=== PATIENT | female | born 1950 | race African-American/Black ===

== ENCOUNTER → 2016-04-17 | Outpatient (CLI) | payer MEDICARE ==
[2015-11-20 11:00] VITALS: BP 159/87
[~2016-04-17] MED LIST: AMLO5TAB2 PO; APIX5TAB PO; ASPI81TA9 PO; ATEN25TA PO; DIPH25CA58 PO; FLEC50TA PO; FLUT9.9S NS; FOLI0.4T2 PO; FOLI1TAB16 PO; LISI40TA PO; MELA1TAB13 PO; OXYC5CAP3 PO; PRAV40TA2 PO; TEMA15CA6 PO; TEMA30CA PO; TRAZ50TA15 PO; ZOLP10TA4 PO
--- NOTE | 2016-04-17 09:03 | KCIC ---
PROCEDURE Maxillofacial bone CT without contrast. HISTORY Chronic sinusitis. TECHNIQUE Computed tomographic images of the maxillofacial bones were obtained without contrast according to a landmark protocol. One or more of the following individualized dose reduction techniques were utilized for this examination: 1. Automated exposure control; 2. Adjustment of the mA and/or kV according to patient size; 3. Use of iterative reconstruction technique. COMPARISON None. FINDINGS There is mild bilateral superior medial maxillary sinus mucosal thickening. The ostiomeatal units are patent. There is no significant nasal septal deviation. There is no sinus wall thickening or erosion. The orbits are unremarkable. The mastoid air cells are clear. The temporomandibular joints are intact. The visualized portions of the brain and calvarium are unremarkable. IMPRESSION Mild maxillary sinus mucosal thickening. Electronically signed by: Dorinda Hanna (Apr 17, 2016 09:01:31)
== END | disposition home or self-care (01) ==
LOC: KCIC CT 07:47
PROVIDERS: ATTEND Otolaryngology
DX: J32.9 Chronic sinusitis, unspecified (principal)
CPT/HCPCS: 70486

== ENCOUNTER → 2016-08-20 | Outpatient (CLI) | payer MEDICARE ==
[2015-11-20 11:00] VITALS: BP 159/87
[~2016-08-20] MED LIST changes: +ASPI-612 PO; -ASPI81TA9 PO; +OXYC5CAP PO; -OXYC5CAP3 PO
--- NOTE | 2016-08-21 15:42 | RAD ---
DATE: 08/20/2016 EXAM: DIGITAL SCREEN BILAT W/CAD HISTORY: Asymptomatic screening mammogram. History of left cyst removal. History of sister with breast cancer at age 62. COMPARISON: 04/15/2015, 06/22/2010 This study was interpreted with the benefit of Computerized Aided Detection (CAD). The breast parenchyma shows scattered fibroglandular densities. Breast parenchyma level B. FINDINGS: Bilateral CC and MLO views were performed. Left breast: There is a new circumscribed 11 mm mass in the lateral superior left breast at posterior depth. This should be further evaluated with spot compression CC and MLO views and possible ultrasound. No suspicious macrocalcifications or areas of architectural distortion. Right breast: No new masses, suspicious calcifications or areas of architectural distortion. Findings are stable from the prior examination. IMPRESSION: 1. Incomplete left mammogram. Additional views are recommended including a spot compression CC and MLO views with possible ultrasound. 2. Negative right mammogram. BI-RADS CATEGORY: 0 INCOMPLETE: NEEDS ADDITIONAL IMAGING EVALUATION AND/OR PRIOR MAMMOGRAMS FOR COMPARISON. RECOMMENDED FOLLOW-UP: ADD ADDITIONAL IMAGING PQRS compliance statement: Mammography is a sensitive method for finding small breast cancers, but it does not detect them all and is not a substitute for careful clinical examination. A negative mammogram does not negate a clinically suspicious finding and should not result in delay in biopsying a clinically suspicious abnormality. "Our facility is accredited by the [employer] Mammography Program."
== END | disposition home or self-care (01) ==
LOC: MAMMO 10:37
PROVIDERS: ATTEND Internal Medicine
DX: Z12.31 Encounter for screening mammogram for malignant neoplasm of breast (principal)
CPT/HCPCS: G0202; 77067

== ENCOUNTER → 2016-08-28 | Outpatient (CLI) | payer MEDICARE ==
[2015-11-20 11:00] VITALS: BP 159/87
--- NOTE | 2016-08-28 10:44 | RAD ---
EXAM: DIGITAL DIAGNOSTIC LT, BREAST LEFT HISTORY: Mass within left breast on screening examination. COMPARISON: Priors including 04/15/2015 and 06/14/2010 Additional images were obtained of the left breast including spot compression and magnification. This study was interpreted with the benefit of Computerized Aided Detection (CAD). FINDINGS: The breast parenchyma Is heterogenously dense, which could reduce sensitivity of mammography. Breast parenchyma level III.. On spot compression images the apparent new well-circumscribed mass within the left upper outer breast persists. In addition there is a cluster of coarse calcifications seen within the left medial inferior breast as well as some calcifications in the left upper breast laterally. Secondary to the presence of this persistent mass the patient was sent ultrasound to further evaluate. Focused ultrasound images were obtained left upper outer breast in the region of concern on mammogram. At the 1:00 position of the left breast 3 cm from the nipple there is a 9 x 9 mm anechoic lesion identified with increased through transmission. IMPRESSION: Persistent well-circumscribed mass is seen within the left upper outer breast on mammogram but on ultrasound this likely corresponds to a benign-appearing cyst. Within the left inferior medial breast as well as within the left outer breast there is some calcifications identified that appear increased from remote prior. Follow-up examination could be obtained in 6 months to ensure no increase BI-RADS CATEGORY: 3 PROBABLE BENIGN-SHORT TERM F/U RECOMMENDED FOLLOW-UP: 6M 6 MONTH FOLLOW-UP PQRS compliance statement: Patient information was entered into a reminder system with a target due date for the next mammogram. Mammography is a sensitive method for finding small breast cancers, but it does not detect them all and is not a substitute for careful clinical examination. A negative mammogram does not negate a clinically suspicious finding and should not result in delay in biopsying a clinically suspicious abnormality. "Our facility is accredited by the [employer] Mammography [employer]."
== END | disposition home or self-care (01) ==
LOC: MAMMO 09:09
PROVIDERS: ATTEND Internal Medicine
DX: N63 Unspecified lump in breast (principal)
CPT/HCPCS: 76641; G0206; 77065

== ENCOUNTER 2017-04-04 09:58 | Inpatient (IN) | payer MEDICARE ==
[2017-04-04 10:17] LABS: ADD MAN DIFF? NO
[2017-04-04 10:20] LABS: BASO % 1 % (0-3); EOS # 0.2 x10^3/uL (0.0-0.7); EOS % 4 % (0-3); HEMATOCRIT 41.9 % (36.0-47.0); HEMOGLOBIN 13.8 g/dL (12.0-15.5); LYMPH # 1.5 x10^3/uL (1.0-4.8); LYMPH % 38 % (24-48); MEAN CORPUSCULAR HEMOGLOBIN 29 pg (25-35); MEAN CORPUSCULAR HGB CONC 33 g/dL (31-37); MEAN CORPUSCULAR VOLUME 88 fL (79-100); MONO # 0.4 x10^3/uL (0.0-1.1); MONO % 10 % (0-9); NEUT # 1.8 x10^3uL (1.8-7.7); NEUT % 47 % (31-73); PLATELET COUNT 241 x10^3/uL (140-400); RED BLOOD COUNT 4.76 x10^6/uL (3.50-5.40); RED CELL DISTRIBUTION WIDTH 14.1 % (11.5-14.5); WHITE BLOOD COUNT 3.9 x10^3/uL (4.0-11.0)
[2017-04-04] MEDS: ASPIRIN 325 MG TABLET PO (10:26)
[2017-04-04] MEDS: MORPHINE SULFATE 4 MG/ML DISP.SYRIN. IV/SQ (10:26)
[2017-04-04 10:34] LABS: PROTHROMBIN TIME PATIENT 12.5 SEC (11.7-14.0)
[2017-04-04 10:38] LABS: ANION GAP 10 (6-14); BLOOD UREA NITROGEN 10 mg/dL (7-20); BUN/CREATININE RATIO 14 (6-20); CALCIUM 9.3 mg/dL (8.5-10.1); CARBON DIOXIDE 28 mmol/L (21-32); CHLORIDE 103 mmol/L (98-107); CREATININE 0.7 mg/dL (0.6-1.0); GFR 101.9; GLUCOSE 111 mg/dL (70-99); POTASSIUM 3.4 mmol/L (3.5-5.1); SODIUM 141 mmol/L (136-145)
[2017-04-04 10:42] LABS: ALBUMIN 3.8 g/dL (3.4-5.0); ALBUMIN/GLOBULIN RATIO 0.9 (1.0-1.7); ALK PHOS 105 U/L (46-116); ALT (SGPT) 27 U/L (14-59); AST (SGOT) 23 U/L (15-37); LIPASE 110 U/L (73-393); MAGNESIUM 2.2 mg/dL (1.8-2.4); TOTAL BILIRUBIN 0.5 mg/dL (0.2-1.0); TOTAL PROTEIN 8.1 g/dL (6.4-8.2)
[2017-04-04 10:44] LABS: TROPONINI < 0.017 ng/mL (0.000-0.055)
[2017-04-04 10:46] LABS: CKMB INDEX 1.1 % (0-4); CKMB MASS 1.1 ng/mL (0.0-3.6); CREATINE KINASE 98 U/L (26-192)
[2017-04-04 10:46] LABS: NT-PRO BNP 99 pg/mL (0-124); THYROID STIM HORMONE (TSH) 1.779 uIU/mL (0.358-3.74)
[2017-04-04 11:19] LABS: BILIRUBIN,URINE NEGATIVE (NEG); CLARITY,URINE CLEAR; COLOR,URINE YELLOW; GLUCOSE,URINE NEGATIVE (NEG); NITRITE,URINE NEGATIVE (NEG); PROTEIN,URINE NEGATIVE (NEG-TRACE); UROBILINOGEN,URINE 0.2 mg/dL (0.2 mg/dL)
[2017-04-04 11:24] LABS: AMORPHOUS SEDIMENT,UR PRESENT /HPF; BACTERIA,URINE 0 /HPF (0-FEW); RBC,URINE 0 /HPF (0-2); SQUAMOUS EPITHELIAL CELL,UR MOD /LPF; WBC,URINE 0 /HPF (0-4)
[2017-04-04 11:26] LABS: BARBITURATES NEG (NEG); BENZODIAZEPINES NEG (NEG); CANNABINOIDS NEG (NEG); COCAINE NEG (NEG); METHADONE NEG (NEG); OPIATES POS (NEG); PHENCYCLIDINE NEG (NEG)
[2017-04-04 11:27] LABS: AMPHETAMINE/METHAMPHETAMINE NEG (NEG); ETHANOL, URINE NEG (NEG)
[2017-04-04] MEDS ORDERED: ONDANSETRON PF 4 MG/2 ML VIAL. IV (11:30)
[2017-04-04] MEDS ORDERED: NITROGLYCERIN SUBLINGUAL 0.4 MG BOTTLE OF 25. SL (11:30)
[2017-04-04] MEDS ORDERED: MORPHINE SULFATE 4 MG/ML DISP.SYRIN. IV (11:30)
[2017-04-04] MEDS: LISINOPRIL 20 MG TABLET PO (16:26)
[2017-04-04] MEDS: amLODIPine BESYLATE 5 MG TABLET PO (16:27)
[2017-04-04] MEDS: ASPIRIN ENTERIC COATED 81 MG TABLET.DR. PO (16:27)
[2017-04-04] MEDS: FLECAINIDE ACETATE 50 MG TABLET. PO (17:37)
[2017-04-04] MEDS ORDERED: ANTI-COAG MONITOR BY PHARMACY. MC (18:00)
[2017-04-04] MEDS ORDERED: ZOLPIDEM 5 MG TABLET. PO (19:45)
[2017-04-04] MEDS: ATORVASTATIN CALCIUM 10 MG TABLET. PO (21:39)
[2017-04-04] MEDS: APIXABAN 5 MG TABLET. PO (21:39)
[2017-04-04] MEDS: ZOLPIDEM 5 MG TABLET. PO (21:39)
[2017-04-04] MEDS: POTASSIUM CHLORIDE 20 MEQ TABLET.ER. PO (22:09)
[2017-04-05 00:27] LABS: ADD MAN DIFF? NO
[2017-04-05 00:28] LABS: BASO % 1 % (0-3); EOS # 0.2 x10^3/uL (0.0-0.7); EOS % 4 % (0-3); HEMATOCRIT 38.1 % (36.0-47.0); HEMOGLOBIN 12.7 g/dL (12.0-15.5); LYMPH # 1.6 x10^3/uL (1.0-4.8); LYMPH % 35 % (24-48); MEAN CORPUSCULAR HEMOGLOBIN 29 pg (25-35); MEAN CORPUSCULAR HGB CONC 33 g/dL (31-37); MEAN CORPUSCULAR VOLUME 88 fL (79-100); MONO # 0.6 x10^3/uL (0.0-1.1); MONO % 13 % (0-9); NEUT # 2.1 x10^3uL (1.8-7.7); NEUT % 47 % (31-73); PLATELET COUNT 209 x10^3/uL (140-400); RED BLOOD COUNT 4.34 x10^6/uL (3.50-5.40); RED CELL DISTRIBUTION WIDTH 14.2 % (11.5-14.5); WHITE BLOOD COUNT 4.5 x10^3/uL (4.0-11.0)
[2017-04-05 00:48] LABS: ANION GAP 6 (6-14); BLOOD UREA NITROGEN 20 mg/dL (7-20); CALCIUM 8.2 mg/dL (8.5-10.1); CARBON DIOXIDE 31 mmol/L (21-32); CHLORIDE 105 mmol/L (98-107); CREATININE 0.9 mg/dL (0.6-1.0); GFR 76.3; GLUCOSE 118 mg/dL (70-99); POTASSIUM 3.9 mmol/L (3.5-5.1); SODIUM 142 mmol/L (136-145)
[2017-04-05 00:54] LABS: CHOLESTEROL 183 mg/dL (0-200); CHOLESTEROL/HDL RATIO 2.5; HDLC 72 mg/dL (40-60); LDLC 99 mg/dL (0-100); NON-HDL CHOLESTEROL 111 mg/dL (0-129); TRIGLYCERIDES 59 mg/dL (0-150); VLDLC 12 mg/dL (0-40)
[2017-04-05 00:57] LABS: TROPONINI < 0.017 ng/mL (0.000-0.055)
[2017-04-05] MEDS: REGADENOSON 0.4 MG/5 ML DISP.SYRIN. IV (10:43)
[2017-04-05] MEDS: FLUTICASONE 50MCG/NASAL SPRAY 16GM BOTTLE. NS (12:05)
[2017-04-05] MEDS: FLECAINIDE ACETATE 50 MG TABLET. PO (12:06)
[2017-04-05] MEDS: FOLIC ACID 1 MG TABLET. PO (12:06)
[2017-04-05] MEDS: amLODIPine BESYLATE 5 MG TABLET PO (12:07)
[2017-04-05] MEDS: ASPIRIN ENTERIC COATED 81 MG TABLET.DR. PO (12:07)
[2017-04-05] MEDS: LISINOPRIL 20 MG TABLET PO (12:07)
[2017-04-05] MEDS: APIXABAN 5 MG TABLET. PO (12:07)
== END 2017-04-05 18:39 | disposition home or self-care (01) | DRG 392 ==
LOC: ER 09:58 → 5 NORTH 11:26
DX: K21.9 Gastro-esophageal reflux disease without esophagitis (principal); I48.2 Chronic atrial fibrillation; R07.89 Other chest pain; E78.00 Pure hypercholesterolemia, unspecified; E78.5 Hyperlipidemia, unspecified; I10 Essential (primary) hypertension; E87.6 Hypokalemia; F41.9 Anxiety disorder, unspecified; M79.7 Fibromyalgia; Z79.01 Long term (current) use of anticoagulants; Z82.49 Family history of ischemic heart disease and other diseases of the circulatory system; Z86.73 Personal history of transient ischemic attack (TIA), and cerebral infarction without residual deficits; Z88.0 Allergy status to penicillin
CPT/HCPCS: 36415; 71045; 78452; 80048; 80053; 80061; 80307; 81001; 82553; 83690; 83735; 83880; 84443; 84484; 85025; 85610; 93005; 93017; 93306; 96374; 96375; 96376; 99285; 99285-25; A9500; J2270; J2785

== ENCOUNTER 2018-02-16 19:26 | Emergency (ER) | payer MEDICARE ==
[~2018-02-16] VITALS: Ht 154.9 cm; Wt 81.2 kg
[~2018-02-16 19:26] MED LIST changes: -AMLO5TAB2 PO; +AMLO5TAB7 PO; +LISI-130 PO; -LISI40TA PO; +TRAZ-85 PO; -TRAZ50TA15 PO
[2018-02-16 19:38] VITALS: BP 188/85
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
--- NOTE | 2018-02-16 20:19 | RAD ---
EXAM: LUMBAR SPINE 2 VIEWS. HISTORY: Low back pain. COMPARISON: None. FINDINGS: There is grade 2 anterolisthesis at L4-5. There is a mild upper lumbar levocurvature. Vertebral body heights are maintained, and no fractures are identified. The anterior pars interarticularis defects at L4 and possibly L3. Degenerative disc disease is moderate to severe at L4-5 and mild elsewhere throughout the lumbar spine. It is mild to moderate within the lower thoracic spine. IMPRESSION: 1. 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 Additional pars defects are suspected and L3. 2. Degenerative disc disease is moderate to severe at L4-5 and mild elsewhere in the lumbar spine. Electronically signed by: Jadyn Barron MD (02/16/2018 8:15 PM) [facility]
[2018-02-16] MEDS ORDERED: DICL100G18 TP (20:24)
[2018-02-16] MEDS ORDERED: CYCL10TA2 PO (20:25)
== END 2018-02-16 20:29 | disposition home or self-care (01) ==
LOC: ER 19:26
DX: S30.0XXA Contusion of lower back and pelvis, initial encounter (principal); I48.91 Unspecified atrial fibrillation; E78.00 Pure hypercholesterolemia, unspecified; I10 Essential (primary) hypertension; Z88.0 Allergy status to penicillin; W22.8XXA Striking against or struck by other objects, initial encounter; Y93.89 Activity, other specified; Y92.89 Other specified places as the place of occurrence of the external cause; Y99.8 Other external cause status
CPT/HCPCS: 72100; 99283

== ENCOUNTER → 2018-07-29 | Outpatient (CLI) | payer MEDICARE ==
[~2018-07-29] MED LIST changes: +AMLO5TAB10 PO; -AMLO5TAB7 PO; +CYCL10TA2 PO; +DICL100G18 TP; +TRAZ-118 PO; -TRAZ-85 PO
--- NOTE | 2018-07-29 11:07 | KCIC ---
Bilateral digital screening mammograms with 3-D tomosynthesis: Reason for examination: Routine screening. Comparison is made to previous studies dated back to 06/14/2010. Bilateral mammograms in CC and oblique projections were obtained with 2-D imaging and 3-D tomosynthesis imaging on a Siemens Inspiration unit and reviewed on the workstation. Interpretation was made with the benefit of CAD. The skin and nipples show no abnormalities. No abnormal axillary lymph nodes are seen. The breast parenchyma is heterogeneously dense. (Breast density: Category C.) There continues to be a circumscribed lesion at the 2:00 B position of the left breast corresponding with the cyst seen on previous ultrasound examination. This does show increase in size measuring approximately 19 mm in size compared to 9 mm previously. There also continue to be small circumscribed lesions in the right breast which are stable. There continue to be clustered calcifications in the 8:00 B position, 1:00 a position and 2:00 B positions of the left breast which are stable. There are no new dominant masses, suspicious calcifications or architectural distortion. Benign calcifications are present. Impression: Enlarging cyst in the 2:00 B position of the left breast. No other significant interval change.. Your patient's mammogram demonstrates that she has dense breast tissue (breast density category C or D), which could hide abnormalities, and if she has other risk factors for breast cancer that have been identified, she might benefit from supplemental screening tests that may be suggested by you as her ordering physician. Dense breast tissue, in and of itself, is a relatively common condition. Therefore, this information is not provided to cause undue concern, but rather to raise your awareness and to promote discussion with your patient regarding the presence of other risk factors, in addition to dense breast tissue. Your patient's mammography results will be sent to her. BI-RAD Category 2: Benign. "Our facility is accredited by the [employer] Mammography Program." This patient's information has been entered into a reminder system for the patient to be notified with the results of her examination and a target date for the next mammogram. Electronically signed by: Flavia Reid MD (07/29/2018 11:03 AM) [facility]
--- NOTE | 2018-07-29 17:23 | KCIC ---
Indication: Postmenopausal screening for osteoporosis. COMPARISON: None available. Bone Density: -BMD: (g/cm2) - AP Spine Total (L1-L4).......... 1.295. - Total left Hip................. 0.881. T-Score: - AP Spine Total (L1-L4)......... 2.3. - Total left Hip................. -0.5. Z-Score: - AP Spine Total (L1-L4).......... 3.4. - Total left Hip................. 0.1. World Health Organization criteria for BMD interpretation classify patients as Normal (T-score at or above -1.0), Osteopenic (T-score between -1.0 and -2.5), or Osteoporotic (T-score at or below -2.5). Impression: 1. AP Spine Total L1-L4--- normal.. 2. Total left Hip--- normal.. Electronically signed by: Prashant Santa MD (07/29/2018 5:20 PM) [place] [id number]
== END | disposition home or self-care (01) ==
LOC: KCIC DEXA 07:51
PROVIDERS: ATTEND Internal Medicine
DX: Z12.31 Encounter for screening mammogram for malignant neoplasm of breast (principal); Z13.820 Encounter for screening for osteoporosis; N64.89 Other specified disorders of breast; N95.9 Unspecified menopausal and perimenopausal disorder; E28.39 Other primary ovarian failure
CPT/HCPCS: 77063; 77067; 77080

== ENCOUNTER → 2019-05-05 | Outpatient (CLI) | payer MEDICARE ==
--- NOTE | 2019-05-05 14:17 | RAD ---
EXAMINATION: BREAST LEFT, DIGITAL DIAGNOSTIC BILATERAL History: Palpable abnormality involving the left upper outer breast and left lower inner breast are reported. Comparison: 07/29/2018, 08/20/2016, 04/15/2015, 06/14/2010 screening exams.. 08/28/2016 left breast ultrasound exam. Technique: Bilateral digital diagnostic mammogram views were obtained. CAD was utilized. 3-D tomosynthesis images were acquired. Findings: Breast Tissue Density B : There are scattered areas of fibroglandular density. Benign-appearing axillary lymph nodes are present. Dystrophic appearing calcification is again noted especially at the left inner breast without significant change compared to recent prior screening exams. No associated mass in the interval. At the left upper outer breast, there is a well-circumscribed mass currently measuring 2.2 cm in maximum diameter which has increased in size since the prior exam several ductal ectasia is present. Small masses involving the left inner breast are present similar to the previous examination and these probably represent cysts. Limited left breast ultrasound examination was performed. At the left breast 1:00 region 9 cm from the nipple, there is a cyst measuring up to 1.6 cm transverse by 1.3 cm tall. There is an intermediate echogenicity masslike component measuring 0.9 cm transverse by 0.65 cm x 0.69 cm tall. Flow is noted within it. At the site of the reported pain involving the left inner breast, ductal ectasia is present. At the 1:00 region 3 cm from the nipple, there is a 0.6 cm x 0.6 cm x 0.5 cm tall mixed hypoechoic structure. It seems to have a thick wall. No flow within it. This corresponds to site of previously seen simple cyst.. Left axillary lymph nodes are small and benign in appearance. IMPRESSION: Mass lesion is present associated with the left upper-outer breast cyst that has increased in size. Ultrasound-guided core biopsy is recommended. There is a hypoechoic structure at 1:00 region 3 cm from the nipple. This may represent complex cyst on the left is not excluded. Ultrasound-guided aspiration and possible core biopsy is recommended. BI-RADS Category 4: Suspicious. Aspiration/biopsy recommended. Recommendation was conveyed to the referring physician's office by voicemail on 05/05/2019 at 2:14 PM. The images were reviewed with computer aided detection. Patient information is entered into the reminder system with a target due date for the next screening mammogram. Mammography is the most sensitive method for finding small breast cancers, but it does not detect them all and is not a substitute for careful clinical examination. A negative mammogram does not negate a clinically suspicious finding and should not result in delay in biopsying a clinically suspicious abnormality. "Our facility is accredited by the [employer] Mammography Program." Electronically signed by: Anil Starkey MD (05/05/2019 2:14 PM) [email or web address]
== END | disposition home or self-care (01) ==
LOC: MAMMO 08:52 → EEVIPCON 08:52
PROVIDERS: ATTEND Internal Medicine
DX: N63.21 Unspecified lump in the left breast, upper outer quadrant (principal); N60.42 Mammary duct ectasia of left breast; N64.89 Other specified disorders of breast
CPT/HCPCS: 76641; 77066

== ENCOUNTER → 2019-05-11 | Outpatient (CLI) | payer MEDICARE ==
--- NOTE | 2019-05-11 16:12 | RAD ---
Examination: 1. Ultrasound-guided left breast core needle biopsy of 2 targets. 2. Left digital diagnostic mammogram. INDICATION: 69-year-old woman with 2 left breast masses recommended for biopsy in the upper outer quadrant. COMPARISON: Left breast ultrasound and diagnostic mammograms of May 05, 2019. TECHNIQUE AND FINDINGS: Informed consent was obtained and an appropriate procedural pause observed. Using standard sterile technique, ultrasound guidance and local anesthesia, the cystic mass with a 9 mm mural nodule at the 1:00 position 9 cm from the nipple was initially targeted for biopsy. Using a 12-gauge spring-loaded biopsy needle, 2 core biopsy samples of the mass were obtained and placed in formalin. During biopsy, some fluid escaped through the needle guide during specimen transfer and appeared jesús in color. An S shaped biopsy marker was deployed. Hemostasis assured with direct breast compression for 10 minutes. Thereafter, using for sterile technique with, attention was turned to the second lesion measures 6 mm at the 1:00 position 3 cm from the nipple where initial attempt at aspiration failed to retrieve any significant fluid. Therefore, procedure was pursued as a core needle biopsy using a 12-gauge biopsy needle and 2 core biopsy samples were obtained and placed in formalin. An open padlock biopsy marker was deployed and hemostasis assured with direct breast compression for 10 minutes. She was highly anxious on arrival but with some reassurance, was able to tolerate the procedures without significant adverse effects. A digital left postprocedure mammogram showed heterogeneously dense breast parenchyma and satisfactory deployment of the S shaped biopsy marker at the periphery of the oval dominant dense mass in the upper outer left breast, reflecting some interval dissipation of the cystic component of the lesion. Likewise, the open padlock shaped biopsy marker deployed satisfactorily and is adjacent to a cluster of coarse heterogeneous calcifications. These have a similar morphology to the larger cluster of coarse heterogeneous calcifications previously described as stable and dystrophic in the medial left breast. No postbiopsy hematoma. Patient was subsequently discharged in stable condition to follow-up with her primary care physician. There were no apparent complications. IMPRESSION: Successful ultrasound-guided left breast core needle biopsy of 2 lesions in the upper outer quadrant left breast at the 1:00 position 9 cm from the nipple (possibly a papilloma) and at the 1:00 position 3 7 m from the nipple, possibly reflecting fat necrosis. Pathology results are pending. An addendum will be issued once pathology results become available.
--- NOTE | 2019-05-15 13:07 | PATHOLOGY ---
[facility] Accession Number: [id number] . 01 Material submitted: . PART A: breast - LEFT BREAST 10C 9CFN. Modifiers: left, 10:00 PART B: breast - LEFT BREAST 10C 3CFN. Modifiers: left, 10:00 . 01 Clinical history: . Left breast mass . 02 Diagnosis: A. Breast biopsy (left breast 10c, 9 cfn): - Consistent with an intraductal papilloma. See comment. . B. Breast biopsy (left breast 10c, 3 cfn): - Fibrocystic changes with radial scar and chronic inflammation. - Microcalcification present. - Immunoperoxidase stain P63 and smooth muscle myosin are positive. - See comment. (SHA:fernando; 05/14/2019) [facility] [place] 05/15/2019 1043 Local . 02 Comment: This case is also reviewed by Dr. Debbie Kirby, and Dr. Roly Draper. . 02 Electronically signed: . Joseph Hannah MD, Pathologist NPI- [id number] . 01 Gross description: . A. The specimen is received in formalin, labeled "Esther Cain, left breast 10:00 9CFN" and consists of 2 needle cores of pink-yellow tissue measuring 0.9 cm and 1.5 cm in length and 0.2 cm each in diameter which are entirely submitted in A1-A2. They were collected at 11:22 AM on 05/11/2019 and placed in formalin at 11:26 AM. The cold ischemic time is 4 minutes and the total formalin fixation time is greater than 6 hours less than 72 hours. . B. The specimen is received in formalin, labeled "Esther Cain, left breast 1:00 3CFN" and consists of 2 needle cores of pink-yellow tissue measuring 1.0 cm and 1.2 cm in length and 0.2 cm in diameter which are entirely submitted in B1-B2. They were collected at 11:32 AM on 05/11/2019 and placed in formalin at 11:35 AM. The cold ischemic time is 3 minutes and the total formalin fixation time is greater than 6 hours less than 72 hours. (SDY; 05/11/2019) [facility] 05/11/2019 1559 Local . 02 Pathologist provided ICD-10: D24.2, N60.12, N61.0 . 02 CPT . 312310, 392003, S30495, [id number] Specimen Comment: A courtesy copy of this report has been sent to [phone], [phone] Specimen Comment: [id number], Specimen Comment: Report sent to ,DR LONG / DR FIGUEROA Performed at: 01 [facility] [address] [id number] MD Payam Mcintyre MD Phone: [phone] Performed at: 02 [facility] [address] [id number] MD Tanner Tucker MD Phone: [phone]
== END ==
LOC: US 09:59
PROVIDERS: ATTEND Surgery
DX: N63.20 Unspecified lump in the left breast, unspecified quadrant (principal)
CPT/HCPCS: 19083; 19084; 77065; C1713; 19081; 76942; 88305

== ENCOUNTER → 2019-07-10 | Outpatient (CLI) | payer MEDICARE ==
[~2019-07-10] MED LIST changes: -DICL100G18 TP; +DICL100G54 TP; +HYDR-3164 PO
== END | disposition home or self-care (01) ==
LOC: LAB 12:40
PROVIDERS: ATTEND Surgery
DX: Z01.818 Encounter for other preprocedural examination (principal); Z11.59 Encounter for screening for other viral diseases; D24.2 Benign neoplasm of left breast
CPT/HCPCS: C9803; U0003; 36415

== ENCOUNTER 2019-07-15 09:52 | Day surgery (SDC) | payer MEDICARE ==
[~2019-07-15] VITALS: Ht 157.5 cm; Wt 78.0 kg
[~2019-07-15 09:52] MED LIST changes: +DEXAMETHASONE SOD PHOS 4 MG/ML VIAL ONE; -HYDR-3164 PO; +HYDROmorphone 2 MG/ML VIAL IV PRN; +IV RINGERS,LACTATED 1000ML 1,000 ML IV SCH; +LIDOCAINE 1% PF 2 ML VIAL. ID PRN; +LIDOCAINE 2% PF 5 ML VIAL. ONE; +MORPHINE SULFATE 2 MG/ML VIAL. IV PRN; +ONDANSETRON PF 4 MG/2 ML VIAL. ONE; +PROCHLORPERAZINE 10 MG/2 ML VIAL. IV PRN; +PROPOFOL 10 MG/ML (20ML) VIAL. IV ONE; +ROCURONIUM 50 MG/5 ML VIAL. ONE; +SUCCINYLCHOLINE 200 MG/10 ML VIAL. ONE; +fentaNYL PF VIAL 100 MCG/2 ML VIAL IV PRN; +fentaNYL PF VIAL 100 MCG/2 ML VIAL ONE
[2019-07-15] MEDS ORDERED: SEVOFLURANE 61 TO 120 MINUTES. IH ONE (11:48)
[2019-07-15] MEDS ORDERED: PROPOFOL 10 MG/ML (20ML) VIAL. IV ONE (11:49)
[2019-07-15] MEDS ORDERED: fentaNYL PF VIAL 100 MCG/2 ML VIAL ONE ×2 (11:49→14:08)
[2019-07-15] MEDS ORDERED: MIDAZOLAM HCL/PF 2 MG/2 ML VIAL. ONE (11:49)
[2019-07-15] MEDS ORDERED: DEXAMETHASONE SOD PHOS 4 MG/ML VIAL ONE (11:49)
[2019-07-15] MEDS ORDERED: ONDANSETRON PF 4 MG/2 ML VIAL. ONE (11:49)
[2019-07-15] MEDS ORDERED: LIDOCAINE 2% PF 5 ML VIAL. ONE (11:49)
[2019-07-15] MEDS ORDERED: BUPIVACAINE-EPI 0.5%-1:200000 MPF 30 ML VIAL. ONE (12:53)
[2019-07-15] MEDS ORDERED: LIDOCAINE 1%/EPI 1:100,000 20 ML VIAL. ONE (12:53)
--- NOTE | 2019-07-15 14:26 | RAD ---
Specimen radiograph INDICATION: Excisional biopsy of an intraductal papilloma in the posterior upper outer left breast. COMPARISON: Earlier same day ultrasound-guided wire localization and postprocedure mammogram. FINDINGS: The surgical specimen obtained shows the S shaped biopsy marker located in the specimen at the approximate F10 grid location, along the diagonal between F10 and the E9 grid hole. Hookwire is present in the specimen, tip at the inferior aspect of the 810 grid hole. IMPRESSION: Surgical specimen contains the S shaped biopsy marker and hook wire as described. Discussed with Dr. Han over the telephone at 2:21 PM on 07/15/2019.
--- NOTE | 2019-07-15 14:45 | DISCH ---
DISCHARGE INSTRUCTIONS Condition on Discharge Condition on Discharge: Stable Activity After Discharge Activity Instructions for Disc: Resume previous activity Diet after Discharge Diet after Discharge: Regular Wound Incision Care Wound/Incision Care: Other, see below (keep dressing clean and dry X 72 hours, may then remove and shower) Follow-Up Follow up with: Dr Han in office in 1 week, call for appt [phone] Treatment/Equipment after DC Adaptive Equipment Issued: ESTELLA Nogueira MD Jul 15, 2019 14:45
--- NOTE | 2019-07-15 14:50 | PDOC4 ---
Operative Note Operative Note Operative Note: Preoperative Diagnosis: Left breast abnormal mammogram Postoperative Diagnosis: Same Procedure: Left breast biopsy with needle loc x2 Surgeon: Guille Mechanical Insulator: Holli ASENCIO Anesthesia: General EBL: 10 mL Specimen: Left breast biopsy to pathology, superior and inferior Drains: None Complications: None Indication: The patient is a 69-year-old female who had core needle biopsies performed at 2 locations of the left breast. These showed benign findings including a fibroadenoma and a radial scar. In review with pathology we believe it appropriate for excision of additional tissue given that the original biopsy was by a needle approach. This was discussed with the patient who is agreeable. The risks of surgery were noted which include bleeding, infection, scar tissue, pain, anesthetic risk, potential need for additional surgery procedure. She understands and would like to proceed. Description: The patient initially went to radiology where she underwent needle localization at the 2 prior biopsy sites. She was then taken to the operating room. She was placed supine on the operating table and general anesthesia was performed. The left breast was prepped with ChloraPrep and draped in a standard surgical manner. We directed our attention first to the superior biopsy site which was in the superior lateral aspect of the left breast. An incision was made in the skin lines with a scalpel. Cautery dissection was carried down to the breast parenchyma. The wire was delivered into the wound. With primarily sharp dissection excision of the involved tissue to the end of the wire was performed. The specimen was fully excised and sent to radiology. Specimen radiograph confirmed the lesion and clip to be present. Hemostasis was achieved with cautery. With palpation I did note an area with some nodularity that I elected to remove. This was excised with cautery and sent to pathology labeled additional superior tissue. We then directed our attention to the inferior biopsy site located at the 3 o'clock position. An incision was made in the skin lines with a scalpel. Similar to before sharp dissection was used to follow with the wire to its termination. A generous specimen of the involved breast tissue was from the surrounding parenchyma. This was fully excised and sent to radiology. Specimen radiograph is also noted the clip to be present. Hemostasis was achieved with cautery. The skin at both incision sites was closed with 4-0 Monocryl. The incisions were infiltrated with half percent Marcaine with epinephrine and sterile dressings were applied. The patient tolerated the procedure well and was sent to the recovery room in stable condition. At the end of the case all counts were correct. ESTELLA LONG MD Jul 15, 2019 14:50
--- NOTE | 2019-07-15 15:04 | RAD ---
DATE: 07/15/2019 12:09 PM EXAM: DIGITAL DIAGNOSTIC LT, US GUID NDL PLACE/ASPI/BX HISTORY: Left breast nodule biopsy showing entered toe papilloma in the upper outer quadrant left breast 10:00 position COMPARISON: Left ultrasound-guided core needle biopsy images and post procedure mammogram of May 11, 2019. Technique and findings: Informed consent was obtained and an appropriate procedural pause observed. Using standard sterile technique and with fresh sterile equipment for each procedure, in successive order, the posterior upper outer left breast (the 10:00 position 9 cm from the nipple) was targeted for needle localization using a 5 cm Mauricio needle with the hookwire threaded through the needle once the needle was securely through the intraductal mass. Thereafter, a similar procedure was used to localize the more anterior 10:00 position 3 cm from the nipple, marked with an open padlock in the CC and MLO views of the left breast were obtained. Bilateral breast tomosynthesis was performed in CC and MLO projections. Digital left postprocedure mammogram showed satisfactory positioning of the hook wires relative to the biopsy marker is in the anterior and posterior upper-outer quadrant of the left breast. FINDINGS on postprocedure mammogram: Breast Density: SCATTERED The breast parenchyma shows scattered fibroglandular densities. Breast parenchyma level B Successful ultrasound-guided needle localization of 2 breast masses in the upper outer quadrant left breast is demonstrated with the wires passing through the masses as seen on prior imaging. IMPRESSION: Successful ultrasound-guided needle localization of 2 masses in the left breast, confirmed on postprocedure mammogram and planned for surgical excision the same day. Specimen radiograph is recommended for each lesion and should contain the biopsy marker, hookwire and residual mass. PQRS compliance statement: Patient information was entered into a reminder system with a target due date for the next mammogram. Mammography is a sensitive method for finding small breast cancers, but it does not detect them all and is not a substitute for careful clinical examination. A negative mammogram does not negate a clinically suspicious finding and should not result in delay in biopsying a clinically suspicious abnormality. "Our facility is accredited by the [employer] Mammography [employer]."
--- NOTE | 2019-07-15 15:14 | RAD ---
Specimen radiograph INDICATION: Surgical excision of radial scar found on ultrasound-guided core needle biopsy of an area of calcifications recalled from screening. COMPARISON: Earlier same day ultrasound-guided needle localization procedure and postprocedure mammogram. FINDINGS: The surgical specimen of the left 10:00 position lesion 3 cm from the nipple contains the hookwire passing through the mass and abutting the open padlock shaped biopsy marker which lies at the E8 position in the grid. There are adjacent calcifications, predominantly coarse and heterogeneous in morphology. IMPRESSION: Surgical specimen contains the biopsy marker, hookwire and residual calcifications as well as the mass targeted for needle localization under ultrasound guidance. Discussed with Dr. Han by telephone at approximately 2:30 PM on 07/15/2019.
[2019-07-15] MEDS ORDERED: HYDR-3164 PO (15:15)
[2019-07-15] MEDS ORDERED: HYDROcodone/APAP 5/325MG 1 TAB TABLET PO ONE (15:30)
[2019-07-15 15:32] VITALS: BP 143/73
--- NOTE | 2019-07-24 17:07 | PATHOLOGY ---
[facility] Accession Number: [id number] . 01 Material submitted: . PART A: breast - LEFT SUPERIOR BREAST BIOPSY. Modifiers: superior, left PART B: breast - LEFT INFERIOR BREAST BIOPSY. Modifiers: left, inferior PART C: breast - ADDITIONAL BREAST TISSUE AT SUPERIOR BIOPSY. Modifiers: left, superior . 01 Clinical history: . Papiloma L breast . 02 Diagnosis: A. Breast tissue, left superior breast wire localized biopsy: - Intraductal papilloma with sclerotic changes, apocrine metaplasia, and usual ductal epithelial hyperplasia. - Previous biopsy site changes, focal. - Proliferative fibrocystic changes with focal florid ductal epithelial hyperplasia. - Focal calcifications identified in association with sclerotic papilloma. . B. Breast tissue, left inferior breast wire localized biopsy: - Intraductal papilloma with sclerotic changes, focal apocrine metaplasia, and florid usual ductal epithelial hyperplasia. - Focal recent biopsy site changes. - Proliferative fibrocystic changes with focal florid ductal epithelial hyperplasia. - Focal calcifications identified within sclerotic papilloma. . C. Breast tissue, additional breast tissue superior biopsy: - Focal nodular stromal sclerosis with few calcifications consistent with portion of sclerotic papilloma. - Fibrocystic changes with focal mild ductal epithelial hyperplasia. - Sclerosing adenosis, focal. . (JPM:roberta; 07/20/2019) MBR 07/24/2019 1043 Local . 02 Comment: Sections of the left superior breast biopsy and left inferior breast biopsy appear similar and show intraductal papillomas with sclerotic changes, apocrine metaplasia, and focally florid ductal epithelial proliferation which focally has a somewhat monomorphous appearance. There are focal calcifications identified within the sclerotic papillomas. Each biopsy also shows previous biopsy site changes and proliferative fibrocystic changes. A panel of immunoperoxidase stains is obtained on both biopsies and yields the following results: . P63 (A1): Presence of myoepithelial cells within intraductal papilloma and focally present within areas of ductal epithelial proliferation. . Smooth muscle myosin heavy chain (A4): Presence of myoepithelial cells within intraductal papilloma and focally present within areas of ductal epithelial proliferation. . CK5/6 (A4): Focal mosaic pattern of epithelial positivity within areas of ductal epithelial proliferation. . P63 (B2): Presence of myoepithelial cells within intraductal papilloma and focally present within areas of ductal epithelial proliferation. . Smooth muscle myosin heavy chain (B2): Presence of myoepithelial cells within intraductal papilloma and focally present within areas of ductal epithelial proliferation. . CK5/6 (B2): Focal mosaic pattern of epithelial positivity within areas of ductal epithelial proliferation. . P63 (B6): Presence of myoepithelial cells within intraductal papilloma and focally present within areas of ductal epithelial proliferation. . Smooth muscle myosin heavy chain (B6): Presence of myoepithelial cells within intraductal papilloma and focally present within areas of ductal epithelial proliferation. . CK5/6: Mosaic pattern of epithelial positivity within areas of ductal epithelial proliferation. . The morphologic and immunophenotypic findings are supportive of the diagnosis of intraductal papilloma with sclerotic changes and usual ductal epithelial hyperplasia. There is no atypia or evidence of malignancy. The case is also examined by Dr. Mcnamara and Dr. Thomas, both of whom concur with the diagnoses. (JPM:drencher; 07/24/2019) . Special stains performed: Immunoperoxidase stains for p63, smooth muscle myosin heavy chain, and CK5/6 on A4, B2 and B6. . 02 Electronically signed: . Parmjit Cain MD, Pathologist NPI- [id number] . 01 Gross description: . A. The specimen is received in formalin, labeled "Esther Cain, left superior breast biopsy" and consists of 2 unoriented segments of yellow fibroadipose tissue weighing 4 g (5.4 x 2.8 x 0.4 cm) and 1 g (2.4 x 1.3 x 0.4 cm. Protruding from the larger segment is a metal localization wire. They are inked black and sectioned to reveal 2 possible nodules measuring 0.6 x 0.5 cm and 1.8 x 0.6 cm. Both nodules grossly abut the inked surface. The masses are approximately 1.5 cm apart with possible previous biopsy cavity between the masses. The specimen is entirely submitted in A1-A8. The specimen was obtained at 2:10 PM and placed in formalin at 2:30 PM on 07/15/2019. The cold ischemic time is 20 minutes and the total formalin fixation time is greater than 6 hours less than 72 hours. . B. The specimen is received in formalin, labeled "Esther Cain, left inferior breast biopsy" and consists of an unoriented segment of yellow fibroadipose tissue weighing 11 g and measuring 6.1 x 4.0 x 0.8 cm. Protruding from one aspect is a metal localization wire. It is inked blue and sectioned to reveal a yellow orange calcified mass measuring 0.8 x 0.7 cm that grossly abuts the inked margin. 0.5 cm from the mass is a 0.9 x 0.6 cm white nodule. Present within the calcified nodule is a biopsy coil. No additional masses are identified. The specimen is entirely submitted in B1-B10 with B4 following decalcification. The specimen was obtained at 2:19 PM and placed in formalin at 2:30 PM on 07/15/2019. The cold ischemic time is 11 minutes and the total formalin fixation time is greater than 6 hours less than 72 hours. . C. The specimen is received in formalin, labeled "Esther Cain, additional breast tissue at superior biopsy" and consists of a segment of yellow partially cauterized fibroadipose tissue measuring 3.3 x 1.8 x 0.8 cm. The presumed new margin is inked black. It is sectioned to reveal a 0.4 x 0.3 cm nodule grossly abutting the inked margin. The specimen is entirely submitted in C1-C3. (SDY; 07/16/2019) SYU/SYU 07/20/2019 1437 Local . 02 Pathologist provided ICD-10: D24.2, N60.82, N62, N60.12, N60.22 . 02 CPT . 156078, 487820, 858836, S61752, B04463 Specimen Comment: A courtesy copy of this report has been sent to [phone], [phone] Specimen Comment: [id number] Specimen Comment: Report sent to / DR FIGUEROA Performed at: 01 [facility] [address], [place], [place] [id number] MD Payam Mcintyre MD Phone: [phone] Performed at: 02 [facility] [address] [place], [place] [id number] MD Parmjit Cain MD Phone: [phone]
== END 2019-07-15 17:41 | disposition home or self-care (01) ==
LOC: SURG 09:52
PROVIDERS: ATTEND Surgery
DX: R92.8 Other abnormal and inconclusive findings on diagnostic imaging of breast (principal); D24.2 Benign neoplasm of left breast; I10 Essential (primary) hypertension; E78.00 Pure hypercholesterolemia, unspecified; I48.91 Unspecified atrial fibrillation; M79.7 Fibromyalgia; E66.9 Obesity, unspecified; Z68.32 Body mass index [BMI] 32.0-32.9, adult; Z87.39 Personal history of other diseases of the musculoskeletal system and connective tissue
CPT/HCPCS: 19125; 19126; 76098; 76942; 77065; A7015; J1100; J1956; J2250; J2405; J2704; J3010; J3490; 88305; 88341; 88342; J0330

== ENCOUNTER 2020-04-02 13:39 | Emergency (ER) | payer MEDICARE ==
[~2020-04-02] VITALS: Ht 157.5 cm; Wt 81.0 kg
[~2020-04-02 13:39] MED LIST changes: +AMLO-186 PO; -AMLO5TAB10 PO; -ASPI-612 PO; +ASPI-886 PO; -DEXAMETHASONE SOD PHOS 4 MG/ML VIAL ONE; +HYDR-3164 PO; -HYDROmorphone 2 MG/ML VIAL IV PRN; -IV RINGERS,LACTATED 1000ML 1,000 ML IV SCH; -LIDOCAINE 1% PF 2 ML VIAL. ID PRN; -LIDOCAINE 2% PF 5 ML VIAL. ONE; -MORPHINE SULFATE 2 MG/ML VIAL. IV PRN; -ONDANSETRON PF 4 MG/2 ML VIAL. ONE; -PROCHLORPERAZINE 10 MG/2 ML VIAL. IV PRN; -PROPOFOL 10 MG/ML (20ML) VIAL. IV ONE; -ROCURONIUM 50 MG/5 ML VIAL. ONE; -SUCCINYLCHOLINE 200 MG/10 ML VIAL. ONE; -fentaNYL PF VIAL 100 MCG/2 ML VIAL IV PRN; -fentaNYL PF VIAL 100 MCG/2 ML VIAL ONE
[2020-04-02 14:20] VITALS: BP 185/94
--- NOTE | 2020-04-02 14:41 | ED.ADGEN ---
Past Medical History Past Medical History: A-Fib, Anxiety, High Cholesterol, Hypertension Additional Past Medical Histor: poor historian Past Surgical History: Other Additional Past Surgical Histo: BREAST SX DUE TO CYST, FATTY TUMOR BACK SX Smoking Status: Never Smoker Alcohol Use: None Drug Use: None General Adult EDM: Chief Complaint: MECHANICAL FALL HPI: HPI: Patient is a 69 year old female coming in for pain to her right wrist and right knee after a fall about 3 hours prior to arrival. Patient has been able to ambulate with pain. Patient states his mechanical fall she was in the store and tripped over a metal trim piece that was on the floor. Denies any head injuries or loss of consciousness. Does take a blood thinner but is unsure of which kind for A. fib. States she otherwise has been well. No bleeding or open wounds. Review of Systems: Review of Systems: All other systems within normal limits except for as noted in the HPI Current Medications: Current Medications Medications (Trade) Dose Ordered Sig/Yimi Start Time Stop Time Status Last Admin Dose Admin Acetaminophen/ Hydrocodone Bitart (Lortab 5/325) 1 tab 1X ONCE 04/02/20 15:00 04/02/20 15:01 DC Allergies: Allergies: Allergies Coded Allergies Type Severity Reaction Last Updated Verified Penicillins Allergy Intermediate Itching 01/21/15 Yes Physical Exam: PE: Constitutional: Well developed, well nourished, no acute distress, non-toxic appearance. [] HENT: Normocephalic, atraumatic, bilateral external ears normal, nose normal. [] Eyes: PERRLA, conjunctiva normal, no discharge. [] Neck: No rigidity, supple, no stridor. [] Cardiovascular: Regular rate and rhythm, brisk cap refill [] Lungs & Thorax: Non labored symmetric respirations, no tachypnea or respiratory distress [] Abdomen: Soft, nondistended. Skin: Warm, dry, no erythema, no rash. [] Back: Unremarkable Extremities: No deformities, range of motion grossly intact, no lower extremity edema. Distal radius tenderness and edema, snuffbox tenderness, neuro exam normal [] Neurologic: Alert and oriented X 3, no focal deficits noted. [] Psychologic: Affect normal, judgement normal, mood normal. [] Current Patient Data: Vital Signs: Vital Signs Date Time Temp Pulse Resp B/P (MAP) Pulse Ox O2 Delivery O2 Flow Rate FiO2 04/02/20 14:20 98.7 78 16 185/94 (124) 95 Room Air 98.7 EKG: EKG: [] Heart Score: Risk Factors: Risk Factors: DM, Current or recent (<one month) smoker, HTN, HLP, family history of CAD, obesity. Risk Scores: Score 0 - 3: 2.5% MACE over next 6 weeks - Discharge Home Score 4 - 6: 20.3% MACE over next 6 weeks - Admit for Clinical Observation Score 7 - 10: 72.7% MACE over next 6 weeks - Early Invasive Strategies Radiology/Procedures: Radiology/Procedures: Three views right shoulder History: pain Internally and externally rotated AP of shoulder obtained, as well as "Y" view. The glenohumeral relationship is normal. There is marginal spurring of the right AC joint. There is a calcified granuloma in the right lung. The remaining visualized osseous structures appear grossly intact. Impression: Moderate osteoarthrosis the right AC joint. No acute findings. [] Three-view right hand and two-view right forearm and 3 view right knee HISTORY: Pain status post fall Three-view right hand: AP lateral oblique views There is marked degenerative changes of the right first carpal metacarpal joint with marginal spurring. There is mild marginal spurring of the distal interphal angeal joints and of the interphalangeal joint of the thumb. There is no lytic destructive changes. There is no interruption of cortex suggestive fracture. IMPRESSION: Osteoporosis. No acute findings. 2 views right forearm: AP lateral views Visualized osseous structures appear grossly intact. There is also joint space of the radiocarpal joint. This mild subchondral change of the wrist. IMPRESSION: Degenerative changes. No acute findings. End impression 3 views right knee: AP lateral oblique views There is marginal spurring of all 3 compartments. There is no lytic destructive changes. IMPRESSION: Marked tricompartmental osteoarthrosis. No acute findings. Course & Med Decision Making: Course & Med Decision Making Pertinent Labs and Imaging studies reviewed. (See chart for details) Splint placed instructed to follow-up with primary care in 1 week for snuffbox tenderness and possible scaphoid fracture [] Dragon Disclaimer: Dragon Disclaimer: This electronic medical record was generated, in whole or in part, using a voice recognition dictation system. Departure Departure Disposition: 01 DC HOME SELF CARE/HOMELESS Condition: STABLE Referrals: SHAHRZAD FIGUEROA MD (PCP) Patient Instructions: Cast or Splint Care Additional Instructions: Follow-up with your primary care if still experiencing pain in her wrist in 7 to 10 days Scripts Acetaminophen With Codeine (ACETAMINOPHEN-COD #3 TABLET) 1 Each Tablet 1 TAB PO PRN Q6HRS PRN for PAIN for 3 Days, #10 TAB Prov: LEDY NOLAND MD 04/02/20 LEDY NOLAND MD Apr 02, 2020 14:41
[2020-04-02] MEDS ORDERED: HYDROcodone/APAP 5/325MG 1 TAB TABLET PO ONE (15:00)
--- NOTE | 2020-04-02 15:08 | RAD ---
Three-view right hand and two-view right forearm and 3 view right knee HISTORY: Pain status post fall Three-view right hand: AP lateral oblique views There is marked degenerative changes of the right first carpal metacarpal joint with marginal spurrin g. There is mild marginal spurring of the distal interphalangeal joints and of the interphalangeal fauzia int of the thumb. There is no lytic destructive changes. There is no interruption of cortex suggestiv e fracture. IMPRESSION: Osteoporosis. No acute findings. 2 views right forearm: AP lateral views Visualized osseous structures appear grossly intact. There is also joint space of the radiocarpal marc nt. This mild subchondral change of the wrist. IMPRESSION: Degenerative changes. No acute findings. End impression 3 views right knee: AP lateral oblique views There is marginal spurring of all 3 compartments. There is no lytic destructive changes. IMPRESSION: Marked tricompartmental osteoarthrosis. No acute findings. Electronically signed by: David Mcmahon III, MD (04/02/2020 3:05 PM) [facility]
--- NOTE | 2020-04-02 15:17 | RAD ---
Three views right shoulder History: pain Internally and externally rotated AP of shoulder obtained, as well as "Y" view. The glenohumeral relationship is normal. There is marginal spurring of the right AC joint. There is a calcified granuloma in the right lung. The remaining visualized osseous structures appear grossly intact. Impression: Moderate osteoarthrosis the right AC joint. No acute findings. end impression Electronically signed by: David Mcmahon III, MD (04/02/2020 3:14 PM) [facility]
[2020-04-02] MEDS ORDERED: ACET1TAB33 PO (15:33)
== END 2020-04-02 16:05 | disposition home or self-care (01) ==
LOC: ER 13:39
DX: M25.531 Pain in right wrist (principal); M25.561 Pain in right knee; G89.11 Acute pain due to trauma; M19.011 Primary osteoarthritis, right shoulder; M79.631 Pain in right forearm; M81.0 Age-related osteoporosis without current pathological fracture; I48.91 Unspecified atrial fibrillation; E78.00 Pure hypercholesterolemia, unspecified; I10 Essential (primary) hypertension; F41.9 Anxiety disorder, unspecified; Z88.0 Allergy status to penicillin; W18.09XA Striking against other object with subsequent fall, initial encounter; Y93.89 Activity, other specified; Y92.89 Other specified places as the place of occurrence of the external cause; Y99.8 Other external cause status
CPT/HCPCS: 29125; 73030; 73090; 73130; 73562; 99284

== ENCOUNTER → 2020-08-02 | Outpatient (CLI) | payer MEDICARE ==
[~2020-08-02] MED LIST changes: +ACET1TAB33 PO; -FOLI0.4T2 PO; +FOLI0.4T5 PO
--- NOTE | 2020-08-02 15:10 | KCIC ---
Bilateral diagnostic digital mammograms with 3-D tomosynthesis: Reason for examination: Pain/tenderness at the excisional biopsy sites in the left breast. Comparison is made to previous studies dated back to 08/20/2016. Bilateral mammograms in CC and oblique projections were obtained with 2-D imaging and 3-D tomosynthes is imaging on a Siemens Inspiration unit and reviewed on the workstation. Interpretation was made wit h the benefit of CAD. The skin and nipples show no abnormalities. No abnormal axillary lymph nodes are seen. The breast par enchyma is heterogeneously dense. (Breast density: Category C.) There continued be coarse clustered c alcifications in the left breast which are stable. There are few scattered calcifications bilaterally which are stable. There continues be a nodular density posteriorly at approximately the 11:30 C posi tion of the left breast. There are also small circumscribed nodules medially at approximately the 8:0 0 B position of the left breast. In the right breast, there is a 6 nodular density approximately the 1:00 C position. There are also nodular densities at the 2:00 C and 8:00 C positions. Further evaluat ion with ultrasound follow. Impression: Calcifications seen bilaterally are stable. Nodular density seen in the right breast at the 1:00 C, 2 :00 C and 8:00 C positions. Nodular densities in the left breast at the 11:30 C 8:00 B positions. Surendra rasound to follow. Your patient's mammogram demonstrates that she has dense breast tissue (breast density category C or D), which could hide abnormalities, and if she has other risk factors for breast cancer that have bee n identified, she might benefit from supplemental screening tests that may be suggested by you as her ordering physician. Dense breast tissue, in and of itself, is a relatively common condition. Therefo re, this information is not provided to cause undue concern, but rather to raise your awareness and t o promote discussion with your patient regarding the presence of other risk factors, in addition to d ense breast tissue. Your patient's mammography results will be sent to her. BI-RAD Category 0: Incomplete. Needs additional imaging evaluation. Bilateral breast ultrasound: Bilateral whole breast ultrasound including evaluation of all 4 quadrants and the retroareolar and ax illary regions of both breasts was performed. In the right breast at the 1:30 position 10.5 cm from the nipple, there is a 7.2 mm hypoechoic circum scribed lesion in parallel orientation with no abnormal vascularity. This probably represents a small fibroadenoma. At the 2:00 position 11 cm from the nipple, there appears to be an 8.1 mm anechoic nod ule which is well-circumscribed and probably represents a small cyst. At the 8:00 position 9 cm from the nipple, there is an 8.1 mm nodule which may represent a small fibroadenoma. There is also a small 3 mm nodule which has a fibrocystic appearance. No abnormal appearing lymph nodes are seen in the ax illa. In the left breast at the 11:30 position 11 cm from the nipple, there is a 1.2 cm hypoechoic circumsc ribed lesion in parallel orientation with appearance suggesting a small fibroadenoma. At the 9:00 pos ition 10 cm from the nipple, there is a 6.2 x 4.4 mm hypoechoic circumscribed lesion in parallel orie ntation consistent with a probable fibroadenoma. At the 9:00 position 8 cm from the nipple, there is a 5.3 mm hypoechoic circumscribed lesion which may represent a small fibroadenoma. No suspicious nodu les are seen. No abnormal appearing lymph nodes are seen in the axilla. IMPRESSION: Small nodular densities bilaterally consistent with cystic, fibrocystic and fibroadenomatous type nod ules. No grossly suspicious lesions are seen. Recommend 6 month follow-up with ultrasound. BI-RADS Category 3: Probably Benign. "Our facility is accredited by the [employer] Mammography Program." This patient's information has been entered into a reminder system for the patient to be notified wit h the results of her examination and a target date for the next mammogram. Electronically signed by: Flavia Reid MD (08/02/2020 3:07 PM) [email or web address]
--- NOTE | 2020-08-02 17:22 | KCIC ---
EXAM: DUAL ENERGY X-RAY ABSORPTIOMETRY (DEXA). HISTORY: Postmenopausal screening. FINDINGS: The lowest measured T-score is -0.5 in the left total femur, based on a bone mineral densit y of 0.881 g/cm^2. Refer to the worksheets for full detail. In comparison with the prior study of 07/29/2018, average bone mineral density at the lumbar spine waterman s changed +2.4%, while the average density at the hips has changed 0.0%. IMPRESSION: Normal. Bone mineral density yields a T-score of -1.0 or greater. Fracture risk is low. FRAX was not calculated. METHODOLOGY: Dual energy x-ray absorptiometry was performed to measure bone mineral density. The foll owing analysis is based on the 2019 Official Positions of the International Society for Clinical Dens itometry: Measurements of the hips and the average of L1-L4 are preferred. When the spine and/or hip cannot be feasibly measured or interpreted, or in the setting of hyperparathyroidism, distal radial bone minera l density may be measured. The lumbar spine T-score is based on the average bone mineral density of L1-L4. In the setting of art ifact or anatomic abnormality, some lumbar levels may be excluded, and the remaining levels used for calculation. A single lumbar level is not used for diagnosis, and if only a single level is available for assessment, another anatomic site will be used to assign a diagnosis. The hip T-score is based on the bone mineral density measurement of the femoral neck or total proxima l femur of either side, whichever is lowest. Bilateral mean values are not used for diagnosis. The forearm T-score is derived from 33% of the distal radius of the nondominant forearm. For postmenopausal and perimenopausal women, and men age 50 or older, of all ethnic groups, T-scores are calculated through comparison of the current measurement with the NHANES III database standard fo r females aged 20-29 years. The lowest T-score of the evaluated anatomic sites is used to a ssign a diagnosis based on the World Health Organization densitometric classification. In premenopausal females and males younger than age 50, a Z-score is calculated based on population s pecific reference data for patient sex and self-reported ethnicity. Electronically signed by: Jadyn Barron MD (08/02/2020 5:19 PM) [id number]
== END ==
LOC: KCIC MAMMO 12:57
PROVIDERS: ATTEND Internal Medicine
DX: N95.9 Unspecified menopausal and perimenopausal disorder (principal); N60.02 Solitary cyst of left breast; N60.01 Solitary cyst of right breast
CPT/HCPCS: 76641; 77066; 77080; G0279; 77062

== ENCOUNTER 2020-09-01 17:52 | Emergency (ER) | payer OTHER, MEDICARE ==
[~2020-09-01] VITALS: Ht 157.5 cm; Wt 85.0 kg
[2020-09-01 19:30] VITALS: BP 165/78
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
== END 2020-09-01 19:45 | disposition home or self-care (01) ==
LOC: ER 17:52
DX: S16.1XXA Strain of muscle, fascia and tendon at neck level, initial encounter (principal); S39.012A Strain of muscle, fascia and tendon of lower back, initial encounter; I48.91 Unspecified atrial fibrillation; E78.00 Pure hypercholesterolemia, unspecified; I10 Essential (primary) hypertension; V49.49XA Driver injured in collision with other motor vehicles in traffic accident, initial encounter; Y92.488 Other paved roadways as the place of occurrence of the external cause; Y93.89 Activity, other specified; Y99.8 Other external cause status
CPT/HCPCS: 99281

== ENCOUNTER 2020-11-22 14:34 | Emergency (ER) | payer OTHER, MEDICARE ==
[~2020-11-22] VITALS: Ht 154.9 cm; Wt 85.9 kg
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
[2020-11-22] MEDS ORDERED: HYDROcodone/APAP 5/325MG 1 TAB TABLET PO ONE (19:00)
[2020-11-22 19:04] VITALS: BP 173/86
[2020-11-22] MEDS ORDERED: HYDR-2761 PO (19:08)
== END 2020-11-22 19:10 | disposition home or self-care (01) ==
LOC: ER 14:34
DX: M25.512 Pain in left shoulder (principal); R07.81 Pleurodynia; M54.2 Cervicalgia; M54.89 Other dorsalgia; I48.91 Unspecified atrial fibrillation; E78.00 Pure hypercholesterolemia, unspecified; I10 Essential (primary) hypertension; Z88.0 Allergy status to penicillin; Z88.8 Allergy status to other drugs, medicaments and biological substances; V89.2XXA Person injured in unspecified motor-vehicle accident, traffic, initial encounter; Y93.I9 Activity, other involving external motion; Y92.89 Other specified places as the place of occurrence of the external cause; Y99.8 Other external cause status
CPT/HCPCS: 70450; 71045; 72072; 72100; 72125; 72170; 73030; 73200; 99285

== ENCOUNTER → 2021-01-26 | Outpatient (CLI) | payer MEDICARE ==
[~2021-01-26] MED LIST changes: +CYCL10TA19 PO; -CYCL10TA2 PO; +HYDR-2761 PO
--- NOTE | 2021-01-26 13:01 | RAD ---
PROCEDURE: US BREAST BILAT, MG DIGITAL BILAT DIAGNOSTIC MAMMO WITH ABEL HISTORY: The patient is 70 years old and is seen for Reason: 6 Month Follow Up Bilateral Breast / Spl . Instructions: / History: . COMPARISON: August 02, 2020 TECHNIQUE: CC and MLO views of both breasts were obtained. Images were processed by the [employer] computer-aided detection system. Bilateral breast ultrasound was also performed. DENSITY: The breast parenchyma is heterogeneously dense. This may lower the sensitivity of mammograph y. FINDINGS: Right mammogram: Numerous well circumscribed masses throughout the right breast. Scattered benign-owen earing calcifications, unchanged. No new mass, architectural distortion or microcalcification. Right ultrasound: Numerous masses throughout the right breast. Complicated cystic lesion within the r ight breast 1:30 position 10.5 cm from the nipple measures 0.9 cm, similar compared to prior. Cyst wi thin the 2:00 position, unchanged. Unchanged lesion at the 8:00 position may represent intramammary l ymph node. Left mammogram: Numerous also a masses throughout the left breast, similar compared to prior. Regions of calcification likely related to prior excisional biopsy, unchanged. No new suspicious mass, archi tectural distortion or mitral calcification. Left ultrasound: Numerous masses throughout the left breast. Postoperative cyst left breast 11:30 pos ition 11 cm from nipple measures 0.8 x 1.3 x 0.6 cm, similar compared to prior. Hypoechoic lesion wit hin the left breast 9:00 position 10 cm from the nipple measures 0.4 x 0.5 x 0.4 cm, similar compared to prior. Additional hypoechoic lesion 9:00 position 8 cm from the nipple measures 0.6 x 0.4 cm. IMPRESSION: 1. Numerous well-circumscribed masses bilaterally. 2. Hypoechoic lesions within the bilateral breasts, may relate to complicated cysts and/or fibroaden omas. Recommend 6 month follow-up bilateral ultrasound to further assess. Recommend annual screening mammograms per [employer] guidelines. BI-RADS category 3 Probably benign Our clinic nurse has been instructed to assist with communicating findings and recommendations to the patient's referring physician and in scheduling follow-up. Patient entered into a reminder system for annual screening mammogram. Electronically signed by: Eloy Wall DO (01/26/2021 12:59 PM) [id number]
== END ==
LOC: MAMMO 10:32
PROVIDERS: ATTEND Surgery
DX: N63.10 Unspecified lump in the right breast, unspecified quadrant (principal); N63.20 Unspecified lump in the left breast, unspecified quadrant; N60.02 Solitary cyst of left breast; N60.01 Solitary cyst of right breast
CPT/HCPCS: 76641; 77066; G0279; 77062